=== PATIENT | male | born 1990 | race American Indian/Alaskan Native ===

== ENCOUNTER 2017-10-29 05:17 | Emergency (ER) | payer OTHER ==
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
[2017-10-29] MEDS ORDERED: XYLOCAINE 1% MPF 5 mL INFILTRATI ONE (07:58)
[2017-10-29] MEDS ORDERED: ULTRAM PO ONE (07:59)
[2017-10-29] MEDS ORDERED: BOOSTRIX IM ONE (07:59)
[2017-10-29 08:00] VITALS: BP 103/72
== END 2017-10-29 08:58 | disposition home or self-care (01) ==
LOC: ED 05:17
DX: S01.511A Laceration without foreign body of lip, initial encounter (principal); F17.200 Nicotine dependence, unspecified, uncomplicated; Y04.0XXA Assault by unarmed brawl or fight, initial encounter; Y93.89 Activity, other specified; Y92.89 Other specified places as the place of occurrence of the external cause; Y99.8 Other external cause status
CPT/HCPCS: 90471; 90715

== ENCOUNTER 2017-11-05 14:46 | Emergency (ER) | payer OTHER ==
[2017-11-05] MEDS ORDERED: TRIPLE ANTIBIOTIC TP ONE (18:31)
--- NOTE | 2017-11-05 18:34 | Emergency Department Report ---
Suture/Staple Removal - HPI Chief Complaint: Laceration/Recheck/Suture Stated Complaint: STICH REMOVAL Time Seen by Provider: 11/05/17 18:12 When Sutures or [place] Placed: 5-7 Days Ago Wound Location: left upper lip ED Review of Systems ROS: Stated complaint: STICH REMOVAL Other details as noted in HPI Constitutional: denies: chills, fever Respiratory: denies: cough, shortness of breath, wheezing Cardiovascular: denies: chest pain, palpitations Gastrointestinal: denies: abdominal pain, nausea, diarrhea Skin: lesions (healing laceration to left upper lip with sutures in place). denies: rash ED Past Medical Hx - Past Medical History Previous Medical History?: No - Surgical History Past Surgical History?: No - Social History Smoking Status: Never Smoker Substance Use Type: None - Medications Home Medications: Home Medications Medication Instructions Recorded Confirmed Last Taken Type Cephalexin [Keflex] 500 mg PO Q12HR 20 Days #20 cap 10/29/17 Unknown Rx Suture Removal Exam - Exam General: Vital signs noted. No distress. Alert and acting appropriately. Wound: No Pathologic Erythema, No Tenderness, No Drainage, No Pus, No Wound Dehiscence Other Systems: All other systems reviewed and are unremarkable. ED Course Vital Signs 11/05/17 15:15 Temperature 99.6 F Pulse Rate 86 Respiratory 16 Rate Blood Pressure 110/61 O2 Sat by Pulse 99 Oximetry ED Recheck MDM - Medical Decision Making This is a 27 y.o. male presents for suture removal from left upper lip placed 7 days ago. Patient examined by me. Vital stable and in no acute distress. Wounds appear to be healing well. Sutures removed with forceps and 11 blade. The wound was cleaned with normal saline and triple antibiotic ointment applied. Discharged home in stable condition. Discussed ER care plan with patient. He agreed with plan. F/U with PCP within the next week. Critical care attestation.: If time is entered above; I have spent that time in minutes in the direct care of this critically ill patient, excluding procedure time. ED Disposition Clinical Impression: Visit for suture removal Disposition: TO HOME OR SELFCARE Is pt being admited?: No Does the pt Need Aspirin: No Condition: Stable Instructions: Laceration (ED), Suture Removal (ED) Additional Instructions: Follow up with Primary Care Provider in 2-3 days. Return to ER if red, swollen, foul discharge, or fever. Referrals: [facility] [Outside] - 3-5 Days [facility] [Outside] - 3-5 Days Time of Disposition: 18:31 Print Language: UZBEK
[2017-11-05 18:52] VITALS: BP 108/64
== END 2017-11-05 18:54 | disposition home or self-care (01) ==
LOC: ED 14:46
DX: S01.511D Laceration without foreign body of lip, subsequent encounter (principal); W45.8XXD Other foreign body or object entering through skin, subsequent encounter
CPT/HCPCS: A6250